=== PATIENT | male | born 1955 | race African-American/Black ===

== ENCOUNTER 2020-11-19 11:01 | Emergency (ER) | payer OTHER ==
[2020-11-19 11:26] VITALS: BP 127/87; PULSE 69; TEMP 97.5; BMI 22.4
[2020-11-19] MEDS ORDERED: ACETAMINOPHEN 500 MG TABLET (FP) PO ONE (12:24)
[2020-11-19] MEDS ORDERED: ACETAMINOPHEN 500 MG TABLET (FP) ONE (12:26)
== END 2020-11-19 13:54 | disposition home or self-care (01) ==
LOC: JERFT 11:01
DX: S82.891A Other fracture of right lower leg, initial encounter for closed fracture (principal); W01.0XXA Fall on same level from slipping, tripping and stumbling without subsequent striking against object, initial encounter; W23.1XXA Caught, crushed, jammed, or pinched between stationary objects, initial encounter
CPT/HCPCS: 73610-TC-RT-FY; 73630-TC-RT-FY; 99283-25

== ENCOUNTER 2024-03-02 06:59 | Emergency (ER) | payer MEDICARE, OTHER ==
[2024-03-02 07:18] VITALS: RESP 18; BMI 22.4
[2024-03-02 08:17] LABS: URINE APPEARANCE CLEAR; URINE BILIRUBIN NEGATIVE (NEGATIVE); URINE COLOR YELLOW; URINE GLUCOSE (UA) NEGATIVE (NEGATIVE); URINE KETONE NEGATIVE (NEGATIVE); URINE LEUK ESTERASE NEGATIVE (NEGATIVE); URINE NITRITE NEGATIVE (NEGATIVE); URINE PROTEIN NEGATIVE (NEGATIVE); URINE UROBILINOGEN 0.2 mg/dL (0.2-1.0)
[2024-03-02] MEDS ORDERED: ACETAMINOPHEN INJECTION 100 ML ONE (08:37)
[2024-03-02] MEDS: ACETAMINOPHEN 1000 MG/100 ML BAG IVPB ONE (09:00)
[2024-03-02 09:26] LABS: POTASSIUM 4.2 mmol/L (3.5-5.1)
[2024-03-02 09:27] LABS: CALCIUM 8.8 mg/dL (8.5-10.1)
[2024-03-02 09:29] LABS: ALBUMIN 3.4 g/dl (3.4-5.0); BLOOD UREA NITROGEN 9.7 mg/dL (7-18)
[2024-03-02 09:30] LABS: BASO % 0.4 % (0-2.0); EOS % 0.3 % (0-4.5); HEMATOCRIT 40.6 % (35.4-49); HEMOGLOBIN 13.3 GM/dL (11.7-16.9); LYMPH % 6.4 % (8-40); MCH 32.3 pg (25.7-33.7); MCHC 32.6 g/dl (32.0-35.9); MEAN CELL VOLUME 98.8 fl (80-96); NEUT % 86.9 % (42.8-82.8); PLATELET COUNT 262 10^3/uL (134-434); RBC 4.11 M/mm3 (4.00-5.60); RDW 14.4 % (11.9-15.9); WHITE BLOOD COUNT 7.2 K/mm3 (4.0-10.0)
[2024-03-02 09:33] LABS: BILIRUBIN,TOTAL 0.5 mg/dL (0.2-1)
[2024-03-02 10:22] LABS: HIV INTERPRETATION NEGATIVE (NEGATIVE)
[2024-03-02 14:39] VITALS: BP 130/75; PULSE 80; TEMP 98
== END 2024-03-02 14:49 | disposition home or self-care (01) ==
LOC: JER 06:59
PROC: 3E033NZ Introduction of Analgesics, Hypnotics, Sedatives into Peripheral Vein, Percutaneous Approach (ICD-10-PCS; principal; 2024-03-02)
DX: K65.4 Sclerosing mesenteritis (principal); R11.2 Nausea with vomiting, unspecified; R10.32 Left lower quadrant pain
CPT/HCPCS: 36415; 74177-TC; 80053; 81003; 83690; 85025; 86803; 87086; 87389; 96374; 99285-25; J0131; Q9967

== ENCOUNTER 2024-07-12 20:34 | Emergency (ER) | payer MEDICARE, OTHER ==
[2024-07-12 20:45] VITALS: BP 129/74; PULSE 78; RESP 18; TEMP 98.3; BMI 22.4
[2024-07-12] MEDS ORDERED: IBUPROFEN 600 MG TABLET (FP) PO ONE (21:33)
[2024-07-12] MEDS: IBUPROFEN 600 MG TABLET (FP) PO ONE (21:43)
== END 2024-07-12 22:11 | disposition home or self-care (01) ==
LOC: JERFT 20:34
DX: S93.401A Sprain of unspecified ligament of right ankle, initial encounter (principal); X50.1XXA Overexertion from prolonged static or awkward postures, initial encounter
CPT/HCPCS: 73610-TC-RT-FY; 73630-TC-RT-FY; 99283-25

== ENCOUNTER 2024-09-13 10:23 | Emergency (ER) | payer OTHER ==
[2024-09-13 10:56] VITALS: RESP 18; BMI 23.7
[2024-09-13] MEDS ORDERED: MORPHINE SULFATE 2 MG/ML SYRINGE ONE (11:33)
[2024-09-13] MEDS: SODIUM CHLORIDE 0.9% 500 ML INFUS.BAG IV ONE (11:40)
[2024-09-13] MEDS: morphine CARPU-JECT 2 MG/1 ML DISP.SYRIN IVPUSH ONE (11:45)
[2024-09-13 12:00] LABS: ABSOLUTE IMMATURE GRANULOCYTES 0.01 x10^3/uL (0.0-0.031); BASOPHILS # 0.03 x10^3/uL (0.01-0.08); EOSINOPHIL % 2.1 % (0.8-7.0); EOSINOPHILS # 0.11 x10^3/uL (0.04-0.54); MCHC 33.5 g/dl (32.3-36.5); MEAN CELL VOLUME 93.4 fl (79.0-92.2); MEAN PLT VOLUME 9.3 fl (9.4-12.4); MONOCYTE # 0.51 x10^3/uL (0.30-0.82); MONOCYTE % 9.9 % (5.3-12.2); RDW 14.9 % (12.2-16.4)
[2024-09-13 12:11] LABS: INR 1.02 (0.83-1.09); PROTHROMBIN TIME (PATIENT) 11.2 SEC (9.7-13.0)
[2024-09-13 12:13] LABS: ACTIVATED PTT 29.0 SECONDS (25.2-36.5)
[2024-09-13 12:28] LABS: CO2 24.0 mmol/L (21-32); GLUCOSE,RANDOM 84.0 mg/dL (74-106)
[2024-09-13 12:31] LABS: CREATININE 0.7 mg/dL (0.55-1.3); SGOT/AST 27.0 U/L (15-37); SGPT/ALT 21.0 U/L (13-61)
[2024-09-13 12:33] LABS: TOT PROT 6.3 g/dl (6.4-8.2)
[2024-09-13 12:34] LABS: ALK PHOS 76.0 U/L (45-117)
[2024-09-13 15:15] LABS: HIV INTERPRETATION NEGATIVE (NEGATIVE)
[2024-09-13 15:20] LABS: HCV DIAGNOSTIC IN-HOUSE W/RFLX NON-REACTIVE (NONREACTIVE)
[2024-09-13 16:51] VITALS: BP 132/79; PULSE 75; TEMP 98.9
== END 2024-09-13 17:18 | disposition home or self-care (01) ==
LOC: JER 10:23
PROC: 3E033NZ Introduction of Analgesics, Hypnotics, Sedatives into Peripheral Vein, Percutaneous Approach (ICD-10-PCS; principal; 2024-09-13)
DX: K40.90 Unilateral inguinal hernia, without obstruction or gangrene, not specified as recurrent (principal); R10.32 Left lower quadrant pain; R94.31 Abnormal electrocardiogram [ECG] [EKG]
CPT/HCPCS: 36415; 74177-TC; 80053; 83605; 85025; 85610; 85730; 86803; 86850; 86900; 86901; 87389; 93005; 93010; 99285-25; Q9967